=== PATIENT | female | born 1980 | race Caucasian/White ===

== ENCOUNTER → 2020-05-26 12:22 | Outpatient (CLI) | payer OTHER, SELFPAY ==
--- NOTE | ~2020-05-26 | MM_ITS ---
EXAMINATION: MM screening yasmin BI w champ HISTORY: Screening mammogram TECHNIQUE: Craniocaudal and mediolateral oblique 3-D tomosynthesis images were obtained and synthetic 2-D images were generated. CAD analysis was submitted and interpreted. COMPARISON: 04/05/2019 bilateral digital screening mammogram BREAST PARENCHYMAL COMPOSITION: There are scattered areas of fibroglandular density. FINDINGS: There is no evidence of suspicious mass, calcification, or architectural distortion to sugg est malignancy in either breast. There has been no suspicious interval change. IMPRESSION: 1. No mammographic evidence of malignancy. 2. Recommend routine screening mammography in one year. BI-RADS Category 1: Negative Reviewed, dictated and finalized at location A.
== END ==
PROVIDERS: Visit Provider Student in an Organized Health Care Education/Training Program
DX: Z12.31 Encounter for screening mammogram for malignant neoplasm of breast (principal)
CPT/HCPCS: 77063; 77067

== ENCOUNTER 2021-04-25 07:19 | Outpatient (RCR) | payer OTHER, SELFPAY | END 2021-07-22 23:59 | disposition home or self-care (01) | LOC: ANHLAB 07:19 | PROVIDERS: Visit Provider Student in an Organized Health Care Education/Training Program | DX: N91.2 Amenorrhea, unspecified (principal) | CPT/HCPCS: 36415; 84702 ==

== ENCOUNTER 2021-04-29 10:47 | Outpatient (CLI) | payer OTHER, SELFPAY ==
--- NOTE | ~2021-04-29 | US_ITS ---
EXAMINATION: US OB <=14 wk fetus w TV DATE: 04/29/2021 11:42 INDICATION: First trimester with inconclusive viability TECHNIQUE: Real-time pelvic ultrasound utilizing both a transvaginal and transabdominal probe was pe rformed. The interpreting radiologist was not present for the study. COMPARISON: None. FINDINGS: The uterus measures 10.9 x 5.1 x 6.0 cm. There is an intrauterine gestational sac. A yolk sac and fe juliann pole are identified. The crown rump length measures 4 mm, which correlates with an estimated gest ational age of 6 weeks and 1 days. heart motion is identified measuring 110 beats per minute (b pm) by M-mode Doppler. 3.6 cm and 1.7 cm fibroids at the anterior uterine fundus on cine imaging. The right ovary measures 2.7 x 1.8 x 2.7 cm. The left ovary measures 3.8 x 2.3 x 2.3 cm. 1.2 cm cyst in the left ovary. Vascular flow identified in both ovaries on color Doppler. There is no free fluid in the pelvis. IMPRESSION: 1. Single living fetus with heart rate of 110 bpm. 2. Gestational age by ultrasound of 6 weeks 1 day(s) +/- 4 day(s) with ultrasound estimated date of d elivery (PRATIK) of 12/22/2021. 3. Fibroid uterus. Reviewed, dictated and finalized at location A. IMPRESSION: 1. Single living fetus with heart rate of 110 bpm. 2. Gestational age by ultrasound of 6 weeks 1 day(s) +/- 4 day(s) with ultrasou nd estimated date of delivery (PRATIK) of 12/22/2021. 3. Fibroid uterus.
== END 2021-04-29 10:48 | disposition home or self-care (01) ==
PROVIDERS: Visit Provider Student in an Organized Health Care Education/Training Program
DX: O36.80X0 Pregnancy with inconclusive fetal viability, not applicable or unspecified (principal); D25.9 Leiomyoma of uterus, unspecified; Z3A.01 Less than 8 weeks gestation of pregnancy
CPT/HCPCS: 76801; 76817

== ENCOUNTER 2021-05-10 12:27 | Outpatient (CLI) | payer OTHER, SELFPAY ==
--- NOTE | ~2021-05-10 | US_ITS ---
EXAMINATION: US OB <=14 wk fetus w TV DATE: 05/10/2021 13:38 INDICATION: Viability and dating. TECHNIQUE: Real-time transabdominal and transvaginal pelvic ultrasound was performed. COMPARISON: Ultrasound 04/29/2021 FINDINGS: TRANSABDOMINAL ULTRASOUND: The uterus measures 12.9 x 5.4 x 7.1 cm. TRANSVAGINAL ULTRASOUND: There is an intrauterine gestational sac. The crown rump length measu res 1.5 cm, which correlates with an estimated gestational age of 7 weeks and 6 day(s) (+/-) 5 day(s) . heart motion is identified measuring 159 beats per minute (bpm) by M-mode Doppler. There is a subchorionic hematoma measuring 0.7 x 0.6 x 0.4 cm. The right ovary measures 2.9 x 1.9 x 1.6 cm. The left ovary measures 3.3 x 2.3 x 2.2 cm. There is no free fluid in the pelvis. IMPRESSION: 1. Single living intrauterine gestation with estimated date of delivery of 12/22/2021 based on the ul trasound from 04/29/2021. 2. Small subchorionic hematoma. Reviewed, dictated and finalized at location A. IMPRESSION: 1. Single living intrauterine gestation with estimated date of delivery of 12/09 based on the ultrasound from 04/29/2021. 2. Small subchorionic hematoma.
== END 2021-05-10 12:28 | disposition home or self-care (01) ==
PROVIDERS: Visit Provider Student in an Organized Health Care Education/Training Program
DX: O46.8X1 Other antepartum hemorrhage, first trimester (principal); Z3A.01 Less than 8 weeks gestation of pregnancy
CPT/HCPCS: 76801; 76817

== ENCOUNTER 2021-09-13 08:56 | Outpatient (RCR) | payer OTHER, SELFPAY ==
[2021-09-13 10:10] LABS: Basophils Absolute Auto 0.1 K/mm3 (0.0-0.1); Basophils Percent Auto 0.5 % (0.2-1.2); Eosinophils Absolute Auto 0.1 K/mm3 (0-0.3); Eosinophils Percent Auto 0.8 % (0-4.4); Hematocrit 35.1 % (37.0-47.0); Hemoglobin 11.3 g/dL (12.0-15.0); Immature Granulocyte Absolute 0.21 K/mm3 (0.00-0.031); Immature Granulocyte Percent A 1.6 % (0-0.5); Mean Corpuscular HGB Conc 32.2 g/dl (32-36); Mean Corpuscular Hemoglobin 27.8 pg (26-34); Mean Corpuscular Volume 86.2 fl (80-100); Mean Platelet Volume 9.4 fl (7.4-10.4); Monocytes Absolute Auto 0.6 K/mm3 (0.1-0.6); Monocytes Percent Auto 4.3 % (2.6-8.5); Neutrophils Absolute Auto 10.4 K/mm3 (1.3-6.7); Neutrophils Percent Auto 79.8 % (45.5-73.1); Platelet Count Result 288 k/mm3 (150-375); Red Blood Count 4.07 M/mm3 (4.2-5.4); Red Cell Distribution Width 15.7 % (11.5-14.5); White Blood Count 13.1 K/mm3 (4.5-10.0)
[2021-09-13 10:19] LABS: Glucose 1 Hour PP 50gm Dose 113 mg/dL
== END 2021-12-12 23:59 | disposition home or self-care (01) ==
LOC: ANHLAB 08:56
PROVIDERS: Visit Provider Student in an Organized Health Care Education/Training Program
DX: Z34.02 Encounter for supervision of normal first pregnancy, second trimester (principal); Z3A.00 Weeks of gestation of pregnancy not specified
CPT/HCPCS: 36415; 82947; 85025; 85461

== ENCOUNTER 2021-11-10 08:00 | Outpatient (CLI) | payer OTHER, SELFPAY ==
[2021-11-10 08:20] LABS: Basophils Absolute Auto 0.1 K/mm3 (0.0-0.1); Basophils Percent Auto 0.4 % (0.2-1.2); Eosinophils Absolute Auto 0.2 K/mm3 (0-0.3); Hematocrit 33.8 % (37.0-47.0); Hemoglobin 10.8 g/dL (12.0-15.0); Immature Granulocyte Absolute 0.19 K/mm3 (0.00-0.031); Immature Granulocyte Percent A 1.3 % (0-0.5); Lymphocytes Absolute Auto 1.78 K/mm3 (0.9-3.2); Lymphocytes Percent Auto 12.3 % (18.3-44.2); Mean Corpuscular Hemoglobin 27.1 pg (26-34); Mean Corpuscular Volume 84.7 fl (80-100); Mean Platelet Volume 9.5 fl (7.4-10.4); Monocytes Absolute Auto 0.9 K/mm3 (0.1-0.6); Monocytes Percent Auto 6.1 % (2.6-8.5); Neutrophils Absolute Auto 11.4 K/mm3 (1.3-6.7); Neutrophils Percent Auto 78.9 % (45.5-73.1); Platelet Count Result 316 k/mm3 (150-375); Red Blood Count 3.99 M/mm3 (4.2-5.4); Red Cell Distribution Width 16.4 % (11.5-14.5); White Blood Count 14.4 K/mm3 (4.5-10.0)
[2021-11-10 11:31] LABS: HIV 1/2 Ab P24 Ag Result Negative (Negative)
[2021-11-10 11:41] LABS: Rapid Plasma Reagin Non-Reactive (NonReactive)
== END 2021-11-10 08:01 | disposition home or self-care (01) ==
LOC: ANHLAB 08:01
PROVIDERS: Visit Provider Student in an Organized Health Care Education/Training Program
DX: Z34.93 Encounter for supervision of normal pregnancy, unspecified, third trimester (principal); Z3A.34 34 weeks gestation of pregnancy
CPT/HCPCS: 36415; 59025; 85025; 86592; 86703; G0432

== ENCOUNTER 2021-11-28 07:20 | Outpatient (RCR) | payer OTHER, SELFPAY ==
[2021-10-27 08:33] VITALS: BP 131/77; PULSE 101
[2021-11-03 15:56] VITALS: BP 128/69; PULSE 85
[2021-11-10 07:42] VITALS: BP 123/73; PULSE 100
[2021-11-17 14:44] VITALS: BP 126/74; PULSE 100
[2021-11-24 15:11] LABS: Basophils Percent Auto 0.3 % (0.2-1.2); Eosinophils Absolute Auto 0.1 K/mm3 (0-0.3); Eosinophils Percent Auto 1.1 % (0-4.4); Hematocrit 32.1 % (37.0-47.0); Hemoglobin 10.4 g/dL (12.0-15.0); Immature Granulocyte Absolute 0.19 K/mm3 (0.00-0.031); Immature Granulocyte Percent A 1.5 % (0-0.5); Lymphocytes Percent Auto 15.4 % (18.3-44.2); Mean Corpuscular HGB Conc 32.4 g/dl (32-36); Mean Corpuscular Hemoglobin 26.9 pg (26-34); Mean Corpuscular Volume 83.2 fl (80-100); Mean Platelet Volume 9.2 fl (7.4-10.4); Monocytes Absolute Auto 0.7 K/mm3 (0.1-0.6); Monocytes Percent Auto 5.7 % (2.6-8.5); Neutrophils Absolute Auto 9.4 K/mm3 (1.3-6.7); Platelet Count Result 287 k/mm3 (150-375); Red Blood Count 3.86 M/mm3 (4.2-5.4); Red Cell Distribution Width 16.6 % (11.5-14.5); White Blood Count 12.3 K/mm3 (4.5-10.0)
[2021-11-24 15:14] LABS: Add Urine Microscopic? NO; Appearance Urine Clear (Clear); Bilirubin Urine Negative (Negative); Blood Urine Negative (Negative); Color Urine Straw (Yellow); Glucose Urine UA Negative (Negative); Ketones Urine Negative (Negative); Leukocyte Esterase Ur Negative LEU/UL (NEGATIVE); Nitrate Urine Negative (Negative); Protein Urine Negative (Negative); Urobilinogen Urine Negative mg/dL (<2.0)
[2021-11-24 15:16] LABS: Specific Grav Ur 1.002 (1.001-1.035)
[2021-11-24 15:17] LABS: Creatinine Urine 30.2 mg/dL; Total Protein Urine Random 15 mg/dL
[2021-11-24 15:20] LABS: Alanine Aminotransferase 11 U/L (4-35); Albumin Level 3.6 g/dL (3.5-5.1); Alkaline Phosphatase 80 U/L (38-126); Anion Gap 6 mmol/L (8-16); Aspartate Amino Transferase 20 U/L (14-36); Bilirubin,Total 0.3 mg/dL (0.2-1.3); Blood Urea Nitrogen 6 mg/dL (7-17); Carbon Dioxide 24 mmol/L (22-30); Chloride 108 mmol/L (98-107); Estimated Glomerular Filt Rate > 60; Glucose 84 mg/dL (65-110); Potassium 3.2 mmol/L (3.4-5.0); Sodium 138 mmol/L (137-145); Uric Acid 5.5 mg/dL (2.5-7.5)
[2021-11-24 16:02] VITALS: BP 131/65
--- NOTE | ~2021-11-28 | US_ITS ---
EXAMINATION: US OB limited w BPP DATE: 11/03/2021 15:52 INDICATION: Variables during third trimester TECHNIQUE: Real-time pelvic ultrasound was performed. The interpreting radiologist was not present fo r the study. COMPARISON: None. FINDINGS: There is a single living fetus in vertex presentation. The placenta is anterior. heart rate is 155 beats per minute (bpm). The amniotic fluid index is 12.9 cm which is normal (normal range: 8.3 cm to 24.5 cm). Biophysical profile performed by the technologist: breathing (30 sec sustained breathing in 30 minutes): 2 out of 2 movement (3 gross body movements in 30 minutes): 2 out of 2 tone (one episode of ewradct-oymtxroam-tywgazo limb movement): 2 out of 2 Amniotic fluid pocket (2 cm): 2 out of 2 Total score: 8 out of 8 IMPRESSION: 1. Single living fetus in vertex presentation. 2. Biophysical profile 8 out of 8. 3. Normal amniotic fluid index. Reviewed, dictated and finalized at location F. [employer]
[2021-11-28 08:41] VITALS: BP 131/77; PULSE 94
== END 2021-12-17 13:10 | disposition home or self-care (01) ==
LOC: ANHOBOP 07:20
PROVIDERS: Visit Provider Student in an Organized Health Care Education/Training Program
DX: O26.893 Other specified pregnancy related conditions, third trimester (principal); O09.513 Supervision of elderly primigravida, third trimester; Z3A.32 32 weeks gestation of pregnancy; Z3A.33 33 weeks gestation of pregnancy; Z3A.34 34 weeks gestation of pregnancy; Z3A.35 35 weeks gestation of pregnancy; Z3A.36 36 weeks gestation of pregnancy; Z3A.37 37 weeks gestation of pregnancy
CPT/HCPCS: 36415; 59025; 76815; 76819; 80053; 81003; 82570; 84156; 84550; 85025

== ENCOUNTER 2021-12-01 17:52 | Inpatient (IN) | payer OTHER, SELFPAY ==
[2021-12-01] VITALS (15 sets, daily range): BP systolic 129–142; BP diastolic 64–97; PULSE 75–99; TEMP 36.9; BMI 40.7
[2021-12-01 18:39] LABS: Basophils Absolute Auto 0.1 K/mm3 (0.0-0.1); Basophils Percent Auto 0.3 % (0.2-1.2); Eosinophils Absolute Auto 0.1 K/mm3 (0-0.3); Eosinophils Percent Auto 0.8 % (0-4.4); Hematocrit 30.9 % (37.0-47.0); Hemoglobin 9.9 g/dL (12.0-15.0); Immature Granulocyte Absolute 0.16 K/mm3 (0.00-0.031); Immature Granulocyte Percent A 1.1 % (0-0.5); Lymphocytes Absolute Auto 1.82 K/mm3 (0.9-3.2); Lymphocytes Percent Auto 12.3 % (18.3-44.2); Mean Corpuscular Hemoglobin 26.4 pg (26-34); Mean Corpuscular Volume 82.4 fl (80-100); Mean Platelet Volume 9.5 fl (7.4-10.4); Monocytes Absolute Auto 0.8 K/mm3 (0.1-0.6); Monocytes Percent Auto 5.7 % (2.6-8.5); Neutrophils Absolute Auto 11.8 K/mm3 (1.3-6.7); Neutrophils Percent Auto 79.8 % (45.5-73.1); Platelet Count Result 319 k/mm3 (150-375); Red Blood Count 3.75 M/mm3 (4.2-5.4); Red Cell Distribution Width 16.6 % (11.5-14.5); White Blood Count 14.8 K/mm3 (4.5-10.0)
[2021-12-01 18:52] LABS: Uric Acid 5.8 mg/dL (2.5-7.5)
[2021-12-01 18:55] LABS: Alanine Aminotransferase 12 U/L (4-35); Albumin Level 3.4 g/dL (3.5-5.1); Alkaline Phosphatase 77 U/L (38-126); Anion Gap 6 mmol/L (8-16); Aspartate Amino Transferase 20 U/L (14-36); Bilirubin,Total 0.1 mg/dL (0.2-1.3); Blood Urea Nitrogen 6 mg/dL (7-17); Calcium 8.8 mg/dL (8.4-10.2); Carbon Dioxide 24 mmol/L (22-30); Chloride 108 mmol/L (98-107); Estimated Glomerular Filt Rate > 60; Glucose 118 mg/dL (65-110); Sodium 138 mmol/L (137-145)
[2021-12-01] MEDS: DINOPROSTONE 10 MG VAG INSERT VAGINAL (19:19)
--- NOTE | 2021-12-01 19:48 | LDADM ---
This patient, Nella Gregory, was admitted to Labor/Delivery/Recovery 105 on 12/01/21 at 17:52. Plans for labor, pain management and were discussed with patient. Patient/family oriented to hospital policies and general routines including ID bracelet, bed and alarms, visiting hours, pain management, procedures, bathroom and other care routines, personal items, smoking policy, room service/diet and guest tray routines, infant security routines, and visiting hours. Patient/Family are encouraged to report perceived risks to care and to ask questions if they do not understand what they are told or what they should do. See OBIX for further documentation.
--- NOTE | 2021-12-01 22:05 | PM.IMHP ---
H&P: HPI History of Present Illness Date/Time: 12/01/21 22:05 Patient is a 41yo LMP 03/13/21 currently 37w4d gestation with PRATIK 12/18/21 who presents to L&D for induction of labor secondary to gestational hypertension. Patient is dated by LMP c/w US on 04/29/21 at 6w gestation. Patient had first elevated BP measurement in office last week. She was observed on L&D and had labs drawn that were within normal limits. Second elevated BP was documented in office today. Patient was diagnosed with gestational hypertension and decision was made to proceed with induction of labor. In general, patient reports feeling well. Denies any headache, chest pain, SOB, N/V, visual disturbances, or RUQ tenderness. Also denies any vaginal bleeding, leakage of fluid, or contractions. Reports good movement. Chief Complaint: Intrauterine at 37 weeks 4 days gestation Gestational hypertension Advanced maternal age Review of Systems Review of Systems: All systems reviewed & are unremarkable except as noted in HPI and below Constitutional: Constitutional: Reports as per HPI, Reports no additional constitutional complaints, Denies chills, Denies fever(s), Denies headache(s) and Denies night sweats Eyes: Eyes: Reports as per HPI and Reports no additional eye complaints ENT: Reports system reviewed and no additional complaints, except as documented, Reports as per HPI, Reports Normal hearing present and Denies headache(s) Cardiovascular: Cardiovascular: Reports as per HPI, Reports no additional cardiovascular complaints, Denies chest pain and Denies dyspnea Respiratory: Respiratory: Reports as per HPI, Reports no additional respiratory complaints, Denies cough and Denies dyspnea Gastrointestinal: Gastrointestinal: Reports as per HPI, Reports no additional gastrointestinal complaints, Denies abdominal pain, Denies change in bowel habits, Denies change in stool character, Denies nausea and Denies vomiting Genitourinary: Genitourinary: Reports no additional female genitourinary complaints, Reports as per HPI, Denies abnormal vaginal bleeding, Denies genital lesions, Denies hot flashes, Denies dyspareunia, Denies pelvic pain, Denies sexual dysfunction, Denies urinary incontinence, Denies vaginal discharge, Denies vaginal dryness and Denies vaginal odor Musculoskeletal: Musculoskeletal: Reports no additional musculoskeletal complaints and Reports as per HPI Integumentary/Breasts: Skin/Breast: Reports system reviewed and no additional complaints, except as docu, Reports as per HPI, Denies breast pain and Denies nipple discharge Neurologic: Reports system reviewed and no additional complaints, except as documented, Reports as per HPI, Reports Normal hearing present and Denies headache(s) Psychiatric: Psychiatric: Reports no additional psychiatric complaints, Reports as per HPI, Denies anxiety and Denies depression Endocrine: Endocrine: Reports no additional endocrine complaints and Reports as per HPI Hematologic/Lymphatic: Hematologic/Lymphatic: Reports no additional hematologic/lymphatic complaints and Reports as per HPI Allergic/Immunologic: Allergic/Immunologic: Reports no additional allergic/immunologic complaints and Reports as per HPI PMFSH Past Medical History Medical History (Updated 12/01/21 @ 22:21 by Ana Maria Godoy MD) Ectopic Surgical History Surgical History (Updated 12/01/21 @ 22:26 by Ana Maria Godoy MD) H/O dilation and curettage Family History Family History Father Family history of type 2 diabetes mellitus Sibling Uterine cancer Social History Social History Smoking status: Never smoker Second hand tobacco smoke exposure: No Alcohol intake: current Substance use: never Spiritual care concerns: No Meds Home Medications and Allergies Home Medications Medication Instructions Recorded Confirmed
--- NOTE | 2021-12-01 22:28 | WPDHPUPDATE1 ---
History and Physical Update Update Date/Time: 12/01/21 22:28 History and Physical has been reviewed, including an updated exam of the patient. There are NO changes in the patient's condition. Risks, benefits, and alternatives have been discussed and questions answered. Patient agrees to proceed with procedure.
[2021-12-02] VITALS (25 sets, daily range): BP systolic 118–147; BP diastolic 53–78; PULSE 63–94; RESP 18; TEMP 36.1–37
--- NOTE | 2021-12-02 06:05 | WPDANESEPP ---
Anes - Eval Pre Procedure Procedure: labor epidural Date/Time: 12/02/21 06:05 Surgeon: milad Pre Op Diagnosis: Induction of Labor Patient Data Age: 41 Gender: F Height: 1.7 m Weight: 118 kg Last Vital Signs Temp 36.9 C 12/01/21 23:44 Pulse 75 12/02/21 03:26 BP 132/66 12/02/21 03:26 Allergies Allergy/AdvReac Type Severity Reaction Status Date / Time No Known Allergies Allergy Verified 12/01/21 14:11 Home Medications Medication Instructions Recorded Confirmed Type prenat.vits,mo,acw-juzk-pibvf 1 tablet PO DAILY 06/08/21 12/01/21 History cholecalciferol (vitamin D3) 50 50 mcg PO DAILY 07/07/21 12/01/21 History mcg (2,000 unit) capsule Laboratory Tests 12/01/21 12/01/21 12/01/21 18:32 18:32 18:32 WBC 14.8 K/mm3 H K/mm3 (4.5-10.0) RBC 3.75 M/mm3 L M/mm3 (4.2-5.4) Hgb 9.9 g/dL L g/dL (12.0-15.0) Hct 30.9 % L % (37.0-47.0) MCV 82.4 fl fl (80-100) MCH 26.4 pg pg (26-34) MCHC 32.0 g/dl g/dl (32-36) RDW 16.6 % H % (11.5-14.5) Plt Count 319 k/mm3 k/mm3 (150-375) MPV 9.5 fl fl (7.4-10.4) Immature Gran % (Auto) 1.1 % H % (0-0.5) Neut % (Auto) 79.8 % H % (45.5-73.1) Lymph % (Auto) 12.3 % L % (18.3-44.2) [place] % (Auto) 5.7 % % (2.6-8.5) Eos % (Auto) 0.8 % % (0-4.4) Baso % (Auto) 0.3 % % (0.2-1.2) Lymph # (Auto) 1.82 K/mm3 K/mm3 (0.9-3.2) [place] # (Auto) 0.8 K/mm3 H K/mm3 (0.1-0.6) Eos # (Auto) 0.1 K/mm3 K/mm3 (0-0.3) Baso # (Auto) 0.1 K/mm3 K/mm3 (0.0-0.1) Abs Immat Gran (auto) 0.16 K/mm3 H K/mm3 (0.00-0.031) Absolute Neuts (auto) 11.8 K/mm3 H K/mm3 (1.3-6.7) Absolute Nucleated RBC 0.0 K/mm3 K/mm3 (0.0-0.012) Nucleated RBC % 0.0 % % (0.0-0.2) Sodium Potassium Chloride Carbon Dioxide Anion Gap BUN Creatinine Estim Creat Clear Calc Estimated GFR Glucose Uric Acid 5.8 mg/dL mg/dL (2.5-7.5) Calcium Total Bilirubin AST ALT Alkaline Phosphatase Total Protein Albumin RPR Pending Blood Type Antibody Screen 12/01/21 12/01/21 18:32 18:32 WBC RBC Hgb Hct MCV MCH MCHC RDW Plt Count MPV Immature Gran % (Auto) Neut % (Auto) Lymph % (Auto) [place] % (Auto) Eos % (Auto) Baso % (Auto) Lymph # (Auto) [place] # (Auto) Eos # (Auto) Baso # (Auto) Abs Immat Gran (auto) Absolute Neuts (auto) Absolute Nucleated RBC Nucleated RBC % Sodium 138 mmol/L mmol/L (137-145) Potassium 3.0 mmol/L L mmol/L (3.4-5.0) Chloride 108 mmol/L H mmol/L (98-107) Carbon Dioxide 24 mmol/L mmol/L (22-30) Anion Gap 6 mmol/L L mmol/L (8-16) BUN 6 mg/dL L mg/dL (7-17) Creatinine 0.60 mg/dL L mg/dL (0.7-1.0) Estim Creat Clear Calc Not Reportable Estimated GFR > 60 (59 - ) Glucose 118 mg/dL H mg/dL (65-110) Uric Acid Calcium 8.8 mg/dL mg/dL (8.4-10.2) Total Bilirubin 0.1 mg/dL L mg/dL (0.2-1.3) AST 20 U/L U/L (14-36) ALT 12 U/L U/L (4-35) Alkaline Phosphatase 77 U/L U/L (38-126) Total Protein 6.0 g/dL L g/dL (6.3-8.2) Albumin 3.4 g/dL L g/dL (3.5-5.1) RPR Blood Type A Positive Antibody Screen Negative Patient hx anesthesia problems: none Family hx anesthesia problems: none Results Review: All pre-op
[2021-12-02 08:32] LABS: Rapid Plasma Reagin Non-Reactive (NonReactive)
[2021-12-02] MEDS: miSOPROStol 25 MCG TABLET VAGINAL (11:39)
--- NOTE | 2021-12-02 16:07 | PM.OBPNLAB ---
Pain Control Date/time seen: 12/02/21 16:07 Patient doing well. s/p cervidil x 12 hrs overnight. Removed this AM. Cervix still closed/thick/high per RN. Vaginal cytotec 25mcg administered following a period of rest. Patient rechecked 4 hrs later. Cervix soft, fingertip, 50%, -3. Rodriguez balloon catheter inserted and inflated with 40cc saline. Placed on traction. Will begin pitocin. EFM category 1. Irregular contractions on toco. Pain management PRN.
[2021-12-02] MEDS: fentaNYL CITRATE INJ (*CRX) 100 MCG/2 ML VIAL 50 MCG IV PUSH (16:10)
[2021-12-02] MEDS: LACTATED RINGERS 1,000 ML 125 ML IV CONT (16:15)
[2021-12-02] MEDS: OXYTOCIN 30 UNITS/NS 500 ML 30 UNITS/500 ML BAG 6 UNITS IV CONT (16:19)
[2021-12-02] MEDS: fentaNYL CITRATE INJ (*CRX) 100 MCG/2 ML VIAL IV PUSH (17:59)
[2021-12-03] VITALS (313 sets, daily range): BP systolic 79–148; BP diastolic 39–94; PULSE 29–151; RESP 18; TEMP 36.6–37.6; O2SAT 88–100
[2021-12-03] MEDS: LACTATED RINGERS 1,000 ML 125 ML IV CONT ×3 (00:13→14:39)
--- NOTE | 2021-12-03 08:54 | P.PNOB_ITS ---
Pain Control Date/time seen: 12/03/21 08:54 Patient doing well this AM. Rodriguez bulb was dislodged at approx. 2:30 a.m. Pt experienced SROM shortly afterwards. Patient became uncomfortable and requested epidural, which was placed. SVE per RN /- 3. IUPC just placed. Continue pitocin. Late decels noted on EFM earlier, however, currently resolved. EFM currently category 1. Contractions q3-4 mins.
[2021-12-03] MEDS: ONDANSETRON INJ 4 MG/2 ML VIAL IV PUSH (11:53)
[2021-12-03] MEDS: SODIUM CHLORIDE 0.9% IV 300 ML 600 ML I-UTERINE (14:39)
[2021-12-03] MEDS: OXYTOCIN 30 UNITS/NS 500 ML 30 UNITS/500 ML BAG 6 UNITS IV CONT (14:44)
[2021-12-03] MEDS: CALCIUM CARBONATE (TUMS) 500 MG (200 MG ELEMENTAL) 1000 MG PO (18:24)
--- NOTE | 2021-12-03 19:30 | P.PNOB_ITS ---
Pain Control Date/time seen: 12/03/21 19:30 Patient doing well. Comfortable. SVE /-2. EFM category 1. [place] shows no contractions. Pitocin was discontinued for a rest and recently restarted. Discussion had with patient regarding current situation and plan. Plan is to administer pitocin for an additional course of [address] Will titrate in effort to achieve adequate contraction pattern. Patient also made aware of little descensus of head. Still at -2 despite SROM and laboring all day as well as various position changes. If no significant progress or by early AM, will proceed with delivery at that time as low likelihood of vaginal delivery. Also discussed with patient risk of chorioamnionitis. Patient will be ruptured for 18 hrs. at approx. 9:00 p.m. Will begin antibiotics for GBS prophylaxis. Patient and implied understanding of situation and agree with plan. All questions and concerns addressed.
[2021-12-03] MEDS: AMPICILLIN 2 GM/NS 100 ML 2 GM/100 ML BAG IVPB (21:30)
[2021-12-04] VITALS (42 sets, daily range): BP systolic 110–143; BP diastolic 47–93; PULSE 18–176; RESP 14–18; TEMP 36.1–38.7; O2SAT 92–100
[2021-12-04] MEDS: AMPICILLIN 1 GM/NS 50 ML 1 GM/50 ML BAG IVPB (01:05)
[2021-12-04] MEDS: OXYTOCIN 30 UNITS/NS 500 ML 30 UNITS/500 ML BAG 999 UNITS IV CONT (05:33)
--- NOTE | 2021-12-04 05:44 | PM.OBPRVD ---
OB - Delivery Note Procedure Delivery date: 12/04/21 Procedure: The patient is now a 41-year-old who presented to labor and delivery on the evening of 12/01/21 at 37 weeks and 4 days gestation for induction of labor secondary to gestational hypertension. Initial cervical exam was closed, thick, and high. Induction of labor was begun with Cervidil. Cervidil remained in place for 12 hours. After Cervidil removal, cervix was essentially unchanged. Decision was made to administer Cytotec. Patient received one dose of Cytotec vaginally. After 4 hours, cervix was fingertip dilated. A Rodriguez bulb was inserted and inflated with saline for mechanical dilation. It was placed on traction and Pitocin was started simultaneously. Rodriguez bulb remained in place for several hours after which it became dislodged and cervical exam was approximately 2-3 cm dilated. Shortly afterwards, patient experienced spontaneous rupture of membranes. Clear amniotic fluid was noted. Pitocin was continued. Patient became uncomfortable and requested an epidural for pain management which placed without difficulty. Patient made extremely slow progress afterwards and head remained high. IUPC was placed for enhanced monitoring. Pitocin was intermittently stopped and restarted few times. Patient progressed to approximately 5 cm dilated, however, did not make significant further change management analyst several hours. Patient was rested again and decision was made to administer one additional course of Pitocin overnight. Antibiotics were started for GBS prophylaxis. Pitocin was restarted and patient progressed to fully dilated at 4:37 a.m. Patient was encouraged push and found to be pushing well. She was prepped and draped for delivery. At 5:17 a.m., patient delivered infant head atraumatically and without difficulty in direct OA presentation. Occiput restituted to maternal right side. With subsequent push, the 's neck, shoulders, and rest of body delivered without difficulty. was crying spontaneously. Nose and mouth were suctioned with bulb suction. Infant was placed on maternal abdomen where care was assumed by awaiting nursing staff. Delayed cord clamping was performed for approximately 60 seconds. The cord was clamped and cut. A segment of cord was collected for cord gases. Cord blood was collected. The placenta was delivered spontaneously and intact. Uterine fundus was noted to be firm with massage. On inspection, a second-degree perineal laceration was noted. This laceration was repaired with 2-0 Vicryl in the usual fashion. Excellent hemostasis was noted. Straight catheterization was performed with return of a moderate amount of concentrated urine. Blood loss for entire delivery was 350 cc. The was a live-born female infant, Apgars 8 and 9, weighing 7 lb 7 oz. Events: Gestational Hypertension Intrapartal Events: Other (prolonged rupture of membranes) Induction method: Per Cervidil Protocol Delivery augmentation: Pitocin Delivery monitor: External FHT, External Uterine and Internal Uterine Route of delivery: Laceration Description: Perineal - 2nd Degree Delivery repair: vicryl (2-0) Specimen: Yes (placenta and cord, cord blood, and cord gases) Quantitative Blood Loss (ml): 350 Anesthesia type: Epidural Disposition: Floor Complications: No immediate complications Baby Date of : 12/04/21 Time of : 05:17 Weeks of gestation at delivery: 38 Infant gender: Female Weight (pounds): 7 Weight (ounces): 7 presentation: vertex position: Other (Direct occiput anterior) Placenta delivery description: Spontaneous Cord Vessel Description: 3 Vessels and Delayed Cord Clamping (x60s) score one minute: 8 score five minutes: 9 AMG Delivery Billing Delivery Delivery: Delivery Charge
[2021-12-04] MEDS: OXYTOCIN 30 UNITS/NS 500 ML 30 UNITS/500 ML BAG 125 UNITS IV CONT (06:07)
[2021-12-04] MEDS: IBUPROFEN 600 MG TABLET PO ×2 (06:37→12:48)
[2021-12-04] MEDS: WITCH HAZEL 40 PADS 1 PAD TOPICAL (06:38)
[2021-12-04] MEDS: BENZOCAINE 20% AER SPR (*SP) 56 GM CAN 1 SPRAY TOPICAL (06:38)
--- NOTE | 2021-12-04 08:20 | OBPPTRN ---
Patient transferred to post room # 290 via wheelchair. Support person present. Oriented to unit, room, information board, rooming in, admission packet and security measures. Patient verbalizes understanding.
[2021-12-04] MEDS: POLYSACCHARIDE IRON COMPLEX 150 MG CAPSULE PO (12:48)
[2021-12-04] MEDS: DOCUSATE SODIUM 100 MG CAPSULE PO (12:48)
[2021-12-04] MEDS: MULTIVIT/MIN/PREN/FOL AC/IRON TABLET 1 TAB PO (12:49)
[2021-12-04] MEDS: HYDROcodone/acetaminophen (*CRX) 5-325 MG TABLET 1 TAB PO (16:40)
[2021-12-05 03:15] VITALS: BP 134/71; PULSE 95; RESP 16; TEMP 36.4; O2SAT 99
[2021-12-05 05:44] LABS: Hematocrit 26.2 % (37.0-47.0); Hemoglobin 8.6 g/dL (12.0-15.0)
[2021-12-05] MEDS: POLYSACCHARIDE IRON COMPLEX 150 MG CAPSULE PO ×2 (08:29→19:34)
[2021-12-05] MEDS: IBUPROFEN 600 MG TABLET PO ×3 (08:29→23:29)
[2021-12-05] MEDS: MULTIVIT/MIN/PREN/FOL AC/IRON TABLET 1 TAB PO (08:29)
[2021-12-05] MEDS: DOCUSATE SODIUM 100 MG CAPSULE PO ×2 (08:29→19:34)
[2021-12-05 08:30] VITALS: BP 127/76; PULSE 95; RESP 16; TEMP 36.6; O2SAT 99
--- NOTE | 2021-12-05 09:29 | PM.OBPNVD ---
OB - PN: Subj Subjective Date/time seen: 12/05/21 09:29 Patient doing well this AM. Denies any headache, chest pain, SOB, N/V, visual disturbances, or RUQ tenderness. Reports tingling sensation of right foot. States left foot felt same way yesterday, however, has since resolved. She is able to ambulate well. Minimal-moderate lochia. Mild cramping. OB - PN: Obj Data Labs CBC & Chem 7: 12/05/21 05:35 12/01/21 18:32 Labs: Laboratory Results - last 24 hr 12/05/21 05:35 Hgb 8.6 L Hct 26.2 L OB - PN A/P Assessment and Plan (1) Normal spontaneous vaginal delivery: Code(s): O80 - Encounter for full-term uncomplicated delivery Status: Acute Assessment and Plan: PPD#1 doing well continue routine care anticipate dc home tomorrow (2) Gestational hypertension: Code(s): O13.9 - Gestational [-induced] hypertension without significant proteinuria, unspecified trimester Status: Acute Assessment and Plan: BP WNL will continue to monitor Time Spent With Patient Time: Total time spent is greater than 50% in coordination of care (as documented) at patient's floor/unit and/or counseling patient: Exam Const: General: cooperative, healthy appearing, comfortable and no acute distress GI: Inspection: non-distended GI Palp: Yes Soft to palpation and No Tenderness to palpation present (GI) Other: fundus firm below umbilicus Extrem: Right lower extremity: edema Details: 1+ Left lower extremity: edema Details: 1+ Other: no calf tenderness
[2021-12-05 12:03] VITALS: BP 140/69; PULSE 84; RESP 20; TEMP 37; O2SAT 99
--- NOTE | 2021-12-05 14:14 | PC.NURSE ---
[id number] Introductions were made and consulted with patient to assess needs related to , her desires and plans to feed her 38 EGA infant. Mother led conversation with her experience with feeding baby so far. Mother works well with her infant with encouragement. Father of baby is actively supportive. The parents have a plan of practicing , pumping and supplementing with colostrum and formula. Reviewed good handwashing when working with infant, breast, nipples and how to protect the nipples with a deep latch. Encouraged understanding the benefits of skin to skin, responding to feeding cues, frequencies of feeding 8-12 times in 24 hours (approximately 2-3 hours), duration of feedings, milk production, intake/output feeding sheet and signs of adequate intake. Discussed stimulating with skin to skin, hand expressing colostrum, touch and talking to to encourage eating at the breast. Reviewed positioning and alignment, supporting breast, off-centered (asymmetrical latch) and leading with the chin with big open wide gape. Multiple attempts at the right and left using football positioning. sucks, stops, and holds the nipple in the mouth. Attempt to the left breast was more successful with a nipple shield but infant did not maintain suck. Nipple care reviewed with big open wide gape, optimal latching with good positioning, comfort and healing with warm, wet washcloth to rinse breast and leave to air-dry colostrum may be left on nipples to dry but have clean hands when touching the nipple/breast. Resources used to facilitate learning were used from the visual handout/ tool/mom and baby guide. When mother pumps minimal colostrum she is encouraged with the process of milk production and encouraged to finger feed the colostrum to the infant. Parents voiced understanding responding to feeding cues, may need to stimulating infant approximately 2-3 hours from the start of the last feeding, calling for assistance if the infant does not latch or there discomfort . Reported to primary RN.
--- NOTE | 2021-12-05 14:21 | PC.NURSE ---
[id number] Consulted with parents, reviewed how the practice session was going. Demonstrated stimulation techniques to wake for feeding. Assisted with to breast. Reviewed positioning/alignment, holding breast and asymmetrical latch on. Infant was unable to latch correctly or doesn't maintain latch when latch starts off optimally. holds nipple in mouth and sleeps. Nipple care reviewed. Managed breast focus and supplementing with human milk and formula with pace bottle feeding. 0.4 ml of human milk syringe fed to infant after a pumping session. Breast pump provided prior to RN shift due to ineffective feeding. Reviewed information regarding pump care, hand washing, nipple care and pumping 8 times in 24 hours (1-2 at night) for 10-15 minutes. Discussed she may want to pump after feedings or between feedings. If after feeding, rest for 5-10 minutes. Reviewed recording pumping schedule on the feeding sheet. Referred to the visual handout along with the mom and baby guide as a resource and when to call a provider. Instructed mother to call out for RN assistance if she is unable to latch infant for feeding or she has discomfort with nursing. Parents voiced understanding to watch for feeding cues to feed on demand or stimulate infant with skin to skin, hand expressed colostrum three hours from start of last feeding. Parents voiced understanding of information shared. Reported to primary RN.
[2021-12-05 15:14] VITALS: BP 132/84; PULSE 83; RESP 18; TEMP 37.2; O2SAT 98
[2021-12-05 19:30] VITALS: BP 131/71; PULSE 81; RESP 16; TEMP 36.9; O2SAT 100
[2021-12-05 23:20] VITALS: BP 138/78; PULSE 76
[2021-12-06 04:20] VITALS: BP 145/81; PULSE 76
[2021-12-06] MEDS: IBUPROFEN 600 MG TABLET PO ×2 (05:18→13:27)
[2021-12-06] MEDS: TETANUS,DIPHTHERIA,AC PERTUSSIS ADULT (0.5 ML) BOOSTRIX IM (05:50)
[2021-12-06 08:30] VITALS: BP 137/76; PULSE 90; RESP 18; TEMP 36.6; O2SAT 100
--- NOTE | 2021-12-06 09:51 | PM.OBPNVD ---
OB - PN: Subj Subjective Date/time seen: 12/06/21 09:51 Patient doing well. Minimal cramping and discomfort alleviated with ibuprofen. Minimal to moderate lochia. Ambulating without difficulty. Patient reports resolution of tingling sensation in lower extremities. Denies any headache, chest pain, shortness of breath, nausea, vomiting, right upper quadrant tenderness, or visual disturbances. OB - PN: Obj Data Labs CBC & Chem 7: 12/05/21 05:35 12/01/21 18:32 OB - PN A/P Assessment and Plan (1) Normal spontaneous vaginal delivery: Code(s): O80 - Encounter for full-term uncomplicated delivery Status: Acute Assessment and Plan: PPD#2 doing well dc home today in stable condition emergency precautions reviewed f/u in 1 week for BP check (2) Gestational hypertension: Code(s): O13.9 - Gestational [-induced] hypertension without significant proteinuria, unspecified trimester Status: Acute Assessment and Plan: one elevated BP overnight WNL this AM emergency precautions reviewed f/u in 1 week for BP check Time Spent With Patient Time: Total time spent is greater than 50% in coordination of care (as documented) at patient's floor/unit and/or counseling patient: Exam Const: General: cooperative, healthy appearing, comfortable and no acute distress GI: Inspection: non-distended GI Palp: Yes Soft to palpation and No Tenderness to palpation present (GI) Other: fundus firm below umbilicus Extrem: Right lower extremity: edema Details: 2+ Left lower extremity: edema Details: 1+ Other: no calf tenderness
--- NOTE | 2021-12-06 10:02 | P.DS_ITS ---
DS: Admitting Diagnosis Discharge Date 12/06/21 Admitting Diagnosis Induction of labor Gestational hypertension OB - DS: Summary OB Procedures : PIH Mgmt OB Procedures Intrapartum: Spontaneous Vag Delivery OB Procedures: : None Time Spent with Patient Time attestation: Total time spent providing and/or coordinating discharge services: DS: Data Data Completed and Pending Pending studies at discharge: Pending at discharge 12/04/21 05:22 Surgical [PTH] Routine Discharge Plan Discharge Attending physician on discharge: Ana Maria Godoy Discharging Clinician: Ana Maria Godoy Anticipated Discharge Date/Time: 12/06/21 10:02 Patient Disposition: Home, Self-Care Activity: as tolerated and pelvic rest Diet: regular Discharge Instructions: Call office ([phone]) to schedule the following appointments: 1. Blood pressure check in 1 week 2. visit in 4-6 weeks You may take Ibuprofen 600mg every 6 hours as needed for cramping/pain. Pain medication may make you constipated. It may be helpful to take an [id number] stool softener, such as Colace and/or Senokot, along with the pain medication to help lessen constipation. Call office or go to ED for pain not controlled with medication, headache, chest pain, shortness of breath, fever, chills, persistent nausea or vomiting, severe abdominal pain, visual disturbances, heavy vaginal bleeding >2 pads/hour, foul vaginal discharge or odor, or problems with your breasts. Patient Instructions: Antibiotic Form Stand Alone Forms: General Discharge Information Follow-up/Referrals: Ana Maria Godoy MD [Physician] - Discharge Medications: Continued prenat.vits,mo,fan-xctg-ogehy Tablet 1 tablet PO DAILY RF: 0 Discontinued cholecalciferol (vitamin D3) 50 mcg (2,000 unit) capsule 50 mcg PO DAILY RF: 0 Date of admission: 12/01/21 17:52 Primary Care Provider: PHYSICIAN,DEVELOPMENT DIRECTOR Admitting Provider: Ana Maria Godoy Attending physician on admission: Ana Maria Godoy Condition: Stable
[2021-12-06] MEDS: POLYSACCHARIDE IRON COMPLEX 150 MG CAPSULE PO (10:18)
[2021-12-06] MEDS: DOCUSATE SODIUM 100 MG CAPSULE PO (10:18)
[2021-12-06] MEDS: MULTIVIT/MIN/PREN/FOL AC/IRON TABLET 1 TAB PO (10:18)
[2021-12-06] MEDS: MEASLES,MUMPS,RUBELLA VACCINE 0.5 ML VIAL SUB-Q (10:19)
[2021-12-06 11:55] VITALS: BP 131/73; PULSE 92; RESP 18; TEMP 37; O2SAT 99
[2021-12-07 10:40] VITALS: BP 130/66; PULSE 70; RESP 20; TEMP 37.4; O2SAT 99
== END 2021-12-06 14:27 | disposition home or self-care (01) | DRG 807 ==
LOC: ANHLDR 12-02 09:53 → ANHOB2 12-04 08:35
PROVIDERS: Admitting Provider Student in an Organized Health Care Education/Training Program; Visit Provider Student in an Organized Health Care Education/Training Program
DX: O13.4 Gestational [pregnancy-induced] hypertension without significant proteinuria, complicating childbirth (principal); Z37.0 Single live birth; Z3A.38 38 weeks gestation of pregnancy; O36.8330 Maternal care for abnormalities of the fetal heart rate or rhythm, third trimester, not applicable or unspecified; O70.1 Second degree perineal laceration during delivery; O42.92 Full-term premature rupture of membranes, unspecified as to length of time between rupture and onset of labor; O32.4XX0 Maternal care for high head at term, not applicable or unspecified
CPT/HCPCS: 36415; 59025; 80053; 84550; 85014; 85018; 85025; 86592; 86850; 86900; 86901; 88307; 90710; 90715; A9270; J0290; J2405; J2590; J2795; J3010; J7030; J7120

== ENCOUNTER → 2022-03-20 13:21 | Outpatient (CLI) | payer OTHER, SELFPAY ==
--- NOTE | ~2022-03-20 | MM_ITS ---
EXAMINATION: MM screening [facility] BI w champ HISTORY: Screening mammogram TECHNIQUE: Craniocaudal and mediolateral oblique 3-D tomosynthesis images were obtained and synthetic 2-D images were generated. CAD analysis was submitted and interpreted. COMPARISON: 05/26/2020, 04/05/2019 BREAST PARENCHYMAL COMPOSITION: The breasts are heterogeneously dense, which may obscure small masses . FINDINGS: There is no suspicious mass, calcification, or architectural distortion to suggest malignan cy in either breast. There has been no suspicious interval change. IMPRESSION: 1. No mammographic evidence of malignancy. 2. Recommend routine screening mammography in one year. BI-RADS Category 1: Negative Reviewed, dictated and finalized at location A.
== END ==
PROVIDERS: PCP Family Medicine Sports Medicine; Visit Provider Student in an Organized Health Care Education/Training Program
DX: Z12.31 Encounter for screening mammogram for malignant neoplasm of breast (principal)
CPT/HCPCS: 77063; 77067

== ENCOUNTER → 2023-05-04 13:45 | Outpatient (CLI) | payer OTHER, SELFPAY ==
--- NOTE | ~2023-05-04 | MM_ITS ---
EXAMINATION: MM screening [facility] BI w champ HISTORY: Screening mammogram TECHNIQUE: Craniocaudal and mediolateral oblique 3-D tomosynthesis images were obtained and synthetic 2-D images were generated. CAD analysis was submitted and interpreted. COMPARISON: 03/20/2022, 05/26/2020, 04/05/2019 BREAST PARENCHYMAL COMPOSITION: There are scattered areas of fibroglandular density. FINDINGS: No suspicious mass, calcification, or architectural distortion are identified in either marco ast to suggest malignancy. There has been no suspicious interval change. IMPRESSION: 1. No mammographic evidence of malignancy. 2. Recommend routine screening mammography in one year. BI-RADS Category 1: Negative Reviewed, dictated and finalized at location A.
== END ==
PROVIDERS: PCP Registered Nurse; Visit Provider Registered Nurse
DX: Z12.31 Encounter for screening mammogram for malignant neoplasm of breast (principal)
CPT/HCPCS: 77063; 77067

== ENCOUNTER 2024-05-10 17:38 | Emergency (ER) | payer OTHER, SELFPAY ==
--- NOTE | ~2024-05-10 | XR_ITS ---
EXAMINATION: XR ankle LT min 3V DATE: 05/10/2024 17:59 INDICATION: Lateral left ankle pain and swelling post injury TECHNIQUE: Anteroposterior, oblique, mortise, and lateral views of the left ankle were obtained. COMPARISON: None. FINDINGS: Alignment is normal. No fracture. Joint spaces are well maintained. Small plantar calcaneal spur. No ankle joint effusion. The soft tissues are unremarkable. IMPRESSION: 1. No left ankle joint effusion or acute osseous abnormality. Reviewed, dictated and finalized at location A.
[2024-05-10 17:46] VITALS: BP 135/72; PULSE 85; RESP 16; TEMP 36.6; O2SAT 98
[2024-05-10 17:50] VITALS: BP 135/72; PULSE 85; RESP 16; TEMP 36.6; O2SAT 98
--- NOTE | 2024-05-10 18:03 | ED.LOWEXIN ---
HPI - Extremity Injury (Lower) General Chief Complaint: Extremity Injury, Lower Stated Complaint: Injured Left Ankle Time Seen by Provider: 05/10/24 18:04 Source: patient Mode of arrival: ambulatory Limitations: no limitations History of Present Illness HPI Narrative: 44-year-old female presented for complaint of left ankle pain and swelling after injury today. She states while walking in the yard she stepped in a hole and rolled the ankle. Denies numbness, tingling, weakness or deformity. She has been able to ambulate but reports some discomfort. Rates pain 1/10 at this time. Taking ibuprofen. Related Data Home Medications Medication Instructions Recorded Confirmed No Home Medications 05/10/24 05/10/24 Allergies Allergy/AdvReac Type Severity Reaction Status Date / Time No Known Allergies Allergy Verified 04/24/24 08:52 Review of Systems Review of Systems: CONSTITUTIONAL: Denies body aches, fever, chills CARDIOVASCULAR: Denies chest pain, palpitations, or edema. RESPIRATORY: Denies cough or dyspnea. SKIN: Denies rash, itching, or wounds. MUSCULOSKELETAL: reports left ankle pain NEUROLOGIC: Denies headache, numbness, tingling, or weakness. All systems reviewed & are unremarkable except as noted in HPI and below PMFSH Past Medical History Medical History Ectopic Normal spontaneous vaginal delivery Surgical History Surgical History H/O dilation and curettage Family History Family History Father Family history of type 2 diabetes mellitus Sibling Uterine cancer Social History Social History Smoking status: Never smoker Second hand tobacco smoke exposure: No Alcohol intake: current Substance use: never Lack of Transportation: No Lack of Food: Never True Current Housing: I Have Housing Concerned About Future Housing: No Difficulty Paying Gas/Electric Bills: No Difficulty Paying for Meds: No Currently Unemployed: No Education: Master's Degree or Higher Difficulty w/ Childcare or Family Care: No Living arrangements: with family Occupation/Education: occupation Gender identity (if verbalized by the patient): Female Sexual Orientation (if Verbalized by the Patient): Straight or Heterosexual Spiritual care concerns: No Comments At time of signature, I have reviewed and agree with nursing past medical, surgical, social and family history unless otherwise noted. Please see nursing chart for further information. There is no relevant family history pertinent to the presenting complaint Exam Narrative: GENERAL: Well-appearing CHEST: Speaks in full sentences. No respiratory distress. HEART: Regular rate and rhythm. Normal and equal peripheral pulses. EXTREMITIES: Left foot has normal strength and sensation, normal range of motion of ankle but endorses mild pain with movement. Mild swelling to lateral malleolus, tender with palpation to posterior aspect. No ecchymosis, No open wounds, skin tenting, or obvious deformity; alignment normal, pulse palpable and equal bilaterally, skin warm, dry, pink. Capillary refill less than 3 seconds. SKIN: Warm, dry NEURO: Alert and oriented x3. PSYCH: Normal mood and affect Course Course Emergency Course: Patient is aware of diagnosis, understands and agrees to treatment plan. Anticipatory guidance given. Patient agrees to follow-up as directed and is aware of reasons to seek care at the emergency department. Portions of this record may have been created with voice recognition software Level of Care: Express Care Visit Vital Signs Vital signs: Vital Signs Temperature 97.8 F 05/10/24 17:46 Pulse Rate 85 05/10/24 17:46 Respiratory Rate 16 05/10/24 17:46 Blood Pressure 13
== END 2024-05-10 18:26 | disposition home or self-care (01) ==
PROVIDERS: Emergency Provider Nurse Practitioner Family; PCP Family Medicine Sports Medicine
DX: S93.402A Sprain of unspecified ligament of left ankle, initial encounter (principal); S96.912A Strain of unspecified muscle and tendon at ankle and foot level, left foot, initial encounter; X50.9XXA Other and unspecified overexertion or strenuous movements or postures, initial encounter
CPT/HCPCS: 73610; 99213; G0463

== ENCOUNTER 2024-06-12 14:39 | Outpatient (CLI) | payer OTHER, SELFPAY ==
--- NOTE | ~2024-06-12 | MM_ITS ---
EXAMINATION: MM screening [facility] BI w champ HISTORY: Screening TECHNIQUE: Craniocaudal and mediolateral oblique 3-D tomosynthesis images were obtained and synthetic 2-D images were generated. CAD analysis was submitted and interpreted. COMPARISON: Comparison to multiple prior studies sequentially, with oldest reviewed study dated 04/05. BREAST PARENCHYMAL COMPOSITION: Not dense: There are scattered areas of fibroglandular density. FINDINGS: There is no evidence of suspicious mass, calcification, or architectural distortion to sugg est malignancy in either breast. There has been no suspicious interval change. IMPRESSION: 1. No mammographic evidence of malignancy. 2. Recommend routine screening mammography in one year. BI-RADS Category 1: Negative Reviewed, dictated and finalized at location B.
== END 2024-06-12 14:40 | disposition home or self-care (01) ==
LOC: MICIMG 14:40
PROVIDERS: PCP Family Medicine Sports Medicine; Visit Provider Nurse Practitioner Obstetrics & Gynecology
DX: Z12.31 Encounter for screening mammogram for malignant neoplasm of breast (principal)
CPT/HCPCS: 77063; 77067